=== PATIENT | female | born 1985 | race Caucasian/White ===

== ENCOUNTER 2020-08-21 13:27 | Emergency (ER) | payer BC, SELFPAY ==
[~2020-08-21] VITALS: Ht 162.6 cm; Wt 113.4 kg
[2020-08-21 13:29] VITALS: BP 128/76; Ht 162.6 cm; Wt 113.4 kg
== END 2020-08-21 14:14 | disposition home or self-care (01) ==
LOC: ED 13:27
DX: J45.901 Unspecified asthma with (acute) exacerbation (principal); Z88.1 Allergy status to other antibiotic agents; Z20.828 Contact with and (suspected) exposure to other viral communicable diseases
CPT/HCPCS: U0003